=== PATIENT | male | born 1960 | race Caucasian/White ===

== ENCOUNTER → 2020-03-12 | Outpatient (CLI) | payer BC ==
--- NOTE | 2020-03-22 11:52 | SLEEPCENT ---
DATE OF STUDY: 03/12/2020 ORDERED BY: Jamal Gunter MD Nocturnal polysomnography was performed for evaluation of sleep physiology in this patient with a history of excessive somnolence and nonrestorative sleep. 8 hours and 4 minutes of data were reviewed. There were 381 minutes of sleep identified. Sleep latency was prolonged at 35 minutes. Rapid eye movement (REM) latency was prolonged at 120 minutes. Sleep architecture showed fragmentation. There were three REM cycles noted. Overall sleep efficiency 79.6%. The patient's electrocardiogram showed a sinus rhythm with an average heart rate of 75 beats per minute. Electroencephalogram (EEG) showed normal waveforms for awake and sleep. There were 167 respiratory events identified of 10 seconds in duration or greater for an apnea-hypopnea index of 25.7. The events were obstructive, not exclusive to sleep stage nor body posture. Arousals from respiratory events occurred 8.5 times per hour, and oxygen desaturations were seen into the low 80s. Significant limb activity was appreciated, however, limb movement arousal index was only 4.7. IMPRESSION: Obstructive sleep apnea syndrome (G47.33). Apnea-hypopnea index 25.7. RECOMMENDATION: The patient should be encouraged to return to the sleep disorder center for pressure therapy. In the interim, alcohol and sedative avoidance should be practiced and caution exercised during the operation of motor vehicles.
== END ==
LOC: M SLEEP 20:00
PROVIDERS: ATTEND Internal Medicine Pulmonary Disease
DX: G47.30 Sleep apnea, unspecified (principal)

== ENCOUNTER → 2024-06-18 | Outpatient (REF) | payer OTHER | LOC: M SMT 12:29 | PROVIDERS: ATTEND Urology | DX: R97.20 Elevated prostate specific antigen [PSA] (principal) ==

== ENCOUNTER → 2025-07-04 | Outpatient (CLI) | payer MEDICARE, OTHER ==
[2025-07-06 12:23] LABS: PSA % FREE 17.0 % (calc) (>25); PSA FREE 0.5 ng/mL; PSA TOTAL 3.0 ng/mL (< OR = 4.0)
== END ==
LOC: M PLALAB 11:07
PROVIDERS: ATTEND Urology
DX: R97.20 Elevated prostate specific antigen [PSA] (principal)

== ENCOUNTER → 2025-08-16 | Outpatient (CLI) | payer OTHER, MEDICARE | LOC: M PLAIMG 10:05 | PROVIDERS: ATTEND Nurse Practitioner Family | DX: M51.16 Intervertebral disc disorders with radiculopathy, lumbar region (principal); M25.551 Pain in right hip; N40.0 Benign prostatic hyperplasia without lower urinary tract symptoms; M43.17 Spondylolisthesis, lumbosacral region; M47.814 Spondylosis without myelopathy or radiculopathy, thoracic region; M47.816 Spondylosis without myelopathy or radiculopathy, lumbar region ==